=== PATIENT | male | born 1955 | race Caucasian/White ===

== ENCOUNTER 2017-08-17 20:27 | Emergency (ER) | payer MEDICAID ==
[~2017-08-17] VITALS: Ht 180.3 cm; Wt 102.0 kg
[~2017-08-17 20:27] MED LIST: LEVE500 PO; LISI-360 PO
[2017-08-17 20:31] VITALS: BP 124/58; PULSE 60; RESP 20; TEMP 97.8; O2SAT 96
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
[2017-08-17 21:00] VITALS: O2SAT 98
[2017-08-17 21:02] LABS: AUTOMATED NEUTROPHIL # 3.9 TH/MM3 (1.8-7.7); BASOPHIL # 0.1 TH/MM3 (0-0.2); EOSINOPHIL # 0.4 TH/MM3 (0-0.4); EOSINOPHIL % 5.6 % (0.0-4.0); HEMATOCRIT 43.3 % (39.0-51.0); HEMOGLOBIN 14.5 GM/DL (13.0-17.0); LYMPH % 31.2 % (9.0-44.0); LYMPHOCYTE # 2.3 TH/MM3 (1.0-4.8); MEAN CELL VOLUME 94.3 FL (80.0-100.0); MEAN CORPUSCULAR HEMOGLOBIN 31.6 PG (27.0-34.0); MEAN CORPUSCULAR HGB CONC 33.5 % (32.0-36.0); MEAN PLATELET VOLUME 8.2 FL (7.0-11.0); MONO % 10.3 % (0.0-8.0); MONOCYTE # 0.8 TH/MM3 (0-0.9); NEUT % 50.9 % (16.0-70.0); PLATELET COUNT 275 TH/MM3 (150-450); RED BLOOD COUNT 4.59 MIL/MM3 (4.50-5.90); RED CELL DISTRIBUTION WIDTH 12.7 % (11.6-17.2); WHITE BLOOD COUNT 7.5 TH/MM3 (4.0-11.0)
[2017-08-17 21:08] LABS: CHLORIDE 97 MEQ/L (98-107); SODIUM (NA) 130 MEQ/L (136-145)
[2017-08-17] MEDS ORDERED: DIAZ10 PO (21:09)
[2017-08-17] MEDS ORDERED: HYDR-3366 PO (21:09)
[2017-08-17] MEDS ORDERED: LISI10TA3 PO (21:09)
[2017-08-17] MEDS ORDERED: TRIL600T PO (21:11)
[2017-08-17] MEDS ORDERED: KEPP10002 PO (21:11)
[2017-08-17 21:12] LABS: ALBUMIN 3.6 GM/DL (3.4-5.0); BICARBONATE 27.7 MEQ/L (21.0-32.0); BLOOD UREA NITROGEN 12 MG/DL (7-18); CALCIUM 8.1 MG/DL (8.5-10.1); GLUCOSE,RANDOM 107 MG/DL (74-106); MAGNESIUM 1.9 MG/DL (1.5-2.5)
[2017-08-17 21:15] LABS: ALT (GPT) 30 U/L (12-78); AST (GOT) 16 U/L (15-37); GLOMERULAR FILTRATION RATE 68 ML/MIN (>89); PHOSPHORUS 3.2 MG/DL (2.5-4.9)
[2017-08-17 21:16] LABS: TOTAL BILIRUBIN ADULT 0.2 MG/DL (0.2-1.0); TOTAL PROTEIN 7.2 GM/DL (6.4-8.2)
[2017-08-17 21:18] LABS: ALKALINE PHOSPHATASE 99 U/L (45-117)
[2017-08-17] MEDS ORDERED: ONDANSETRON HCL 4 MG/2 ML VIAL IV PUSH ONE (21:30)
[2017-08-18] MEDS ORDERED: CARA1TAB6 PO (20:27)
[2017-08-18] MEDS ORDERED: PROT40TA PO (20:27)
== END 2017-08-17 22:13 | disposition home or self-care (01) ==
LOC: PHED 20:27
DX: G40.89 Other seizures (principal); F19.10 Other psychoactive substance abuse, uncomplicated; R10.9 Unspecified abdominal pain; M25.50 Pain in unspecified joint; I10 Essential (primary) hypertension; I25.10 Atherosclerotic heart disease of native coronary artery without angina pectoris; K21.9 Gastro-esophageal reflux disease without esophagitis; F17.200 Nicotine dependence, unspecified, uncomplicated; Z87.39 Personal history of other diseases of the musculoskeletal system and connective tissue; Z86.79 Personal history of other diseases of the circulatory system; Z87.09 Personal history of other diseases of the respiratory system
CPT/HCPCS: 80053; 80307; 83690; 83735; 84100; 85025; 96374; 99284; J2405

== ENCOUNTER 2017-08-18 17:49 | Emergency (ER) | payer MEDICAID ==
[~2017-08-18] VITALS: Ht 180.3 cm; Wt 101.1 kg
[~2017-08-18 17:49] MED LIST changes: +DIAZ10 PO; +HYDR-3366 PO; +KEPP10002 PO; -LEVE500 PO; -LISI-360 PO; +LISI10TA3 PO; +TRIL600T PO
[2017-08-18 17:55] VITALS: BP 148/79; PULSE 96; RESP 16; TEMP 98.3; O2SAT 96
[2017-08-18 18:15] VITALS: RESP 16; O2SAT 95
[2017-08-18] MEDS ORDERED: ATROPINE/SCOPOLAM/HYOSCYAM/PB ELIXIR 10 ML CUP PO ONE (18:15)
[2017-08-18] MEDS ORDERED: PANTOPRAZOLE SOD 40 MG DELAYED RELEASE TAB PO ONE (18:15)
[2017-08-18] MEDS ORDERED: ALUMINUM/MAGNESIUM/SIMETH 30 ML CUP PO ONE (18:15)
[2017-08-18 18:16] VITALS: BP 144/81; PULSE 58; RESP 16; O2SAT 95
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
[2017-08-18 18:35] LABS: AUTOMATED NEUTROPHIL # 3.2 TH/MM3 (1.8-7.7); BASOPHIL # 0.1 TH/MM3 (0-0.2); BASOPHIL % 2.3 % (0.0-2.0); EOSINOPHIL # 0.3 TH/MM3 (0-0.4); EOSINOPHIL % 3.9 % (0.0-4.0); HEMATOCRIT 43.2 % (39.0-51.0); HEMOGLOBIN 14.7 GM/DL (13.0-17.0); LYMPH % 32.2 % (9.0-44.0); LYMPHOCYTE # 2.1 TH/MM3 (1.0-4.8); MEAN CELL VOLUME 94.4 FL (80.0-100.0); MEAN CORPUSCULAR HEMOGLOBIN 32.2 PG (27.0-34.0); MEAN PLATELET VOLUME 8.3 FL (7.0-11.0); MONO % 10.9 % (0.0-8.0); MONOCYTE # 0.7 TH/MM3 (0-0.9); NEUT % 50.7 % (16.0-70.0); PLATELET COUNT 259 TH/MM3 (150-450); RED BLOOD COUNT 4.57 MIL/MM3 (4.50-5.90); RED CELL DISTRIBUTION WIDTH 12.8 % (11.6-17.2); WHITE BLOOD COUNT 6.4 TH/MM3 (4.0-11.0)
[2017-08-18 18:45] LABS: CHLORIDE 99 MEQ/L (98-107); SODIUM (NA) 130 MEQ/L (136-145)
[2017-08-18 18:48] LABS: ALBUMIN 3.7 GM/DL (3.4-5.0); BICARBONATE 24.8 MEQ/L (21.0-32.0)
[2017-08-18 18:49] LABS: BLOOD UREA NITROGEN 13 MG/DL (7-18); GLUCOSE,RANDOM 90 MG/DL (74-106)
--- NOTE | 2017-08-18 18:49 | RADRPT ---
EXAM DATE/TIME: 08/18/2017 18:28 [facility] COMPARISON: No previous studies available for comparison. INDICATIONS : Abdomen pain MEDICAL HISTORY : Chronic obstructive pulmonary disease. SURGICAL HISTORY : Cholecystectomy. biliary duct stent ENCOUNTER: Initial ACUITY: 1 day PAIN SCORE: 10/10 LOCATION: Bilateral abdomen FINDINGS: The exam demonstrates a moderate amount of stool diffusely throughout the colon suggesting constipati on. There are surgical clips in the right upper quadrant. There is an internal biliary stent in place. No findings to indicate bowel obstruction are seen. No free air is identified. The visualized bony structures demonstrate degenerative changes but are otherwise intact. CONCLUSION: 1. Biliary stent in good position. 2. Stool diffusely throughout the colon suggesting constipation. Sukhjinder Calvillo MD on August 18, 2017 at 18:46 Board Certified Radiologist. This report was verified electronically.
[2017-08-18 18:51] LABS: ALT (GPT) 29 U/L (12-78); AST (GOT) 25 U/L (15-37); GLOMERULAR FILTRATION RATE 52 ML/MIN (>89)
[2017-08-18 18:53] LABS: PROTHROMBIN TIME - PATIENT 10.6 SEC (9.8-11.6); TOTAL BILIRUBIN ADULT 0.2 MG/DL (0.2-1.0); TOTAL PROTEIN 7.5 GM/DL (6.4-8.2)
[2017-08-18 18:54] LABS: ALKALINE PHOSPHATASE 89 U/L (45-117)
[2017-08-18 18:56] LABS: TROPONIN I LESS THAN 0.02 NG/ML (0.02-0.05)
[2017-08-18 19:30] VITALS: BP 142/80; PULSE 56; RESP 18; O2SAT 97
[2017-08-18 19:30] LABS: BILIRUBIN, URINE NEG (NEG); BLOOD, URINE NEG (NEG); GLUCOSE,URINE NEG (NEG); KETONE, URINE NEG (NEG); NITRITE,URINE NEG (NEG); URINE COLOR YELLOW (YELLW/STRAW); URINE LEUKOCYTE ESTERASE TRACE (NEG)
[2017-08-18 19:47] LABS: SQUAMOUS EPITHELIAL CELL URINE 0-5 /hpf (0-5); WBC, URINE 0-2 /hpf (0-5)
[2017-08-18 19:48] LABS: MUCUS URINE OCC /lpf (OCC)
[2017-08-18] MEDS ORDERED: PROT40TA PO (20:27)
[2017-08-18] MEDS ORDERED: CARA1TAB6 PO (20:27)
[2017-08-18 20:54] VITALS: BP 146/86; PULSE 61; RESP 18; O2SAT 96
--- NOTE | 2017-08-19 10:32 | EKG ---
Date Performed: 08/18/2017 Time Performed: 18:10:11 PTAGE: 62 years EKG: SINUS BRADYCARDIA BORDERLINE ECG Compared to PREVIOUS TRACING the patient is now bradycardic PREVIOUS TRACIN01/21/2014 21.33 DOCTOR: Marta Nguyen Interpretating Date/Time 08/19/2017 10:32:21
== END 2017-08-18 20:56 | disposition home or self-care (01) ==
LOC: PHED 17:49
DX: R10.13 Epigastric pain (principal); K29.50 Unspecified chronic gastritis without bleeding; B18.2 Chronic viral hepatitis C; I10 Essential (primary) hypertension; J44.9 Chronic obstructive pulmonary disease, unspecified; R56.9 Unspecified convulsions; Z88.0 Allergy status to penicillin; M54.9 Dorsalgia, unspecified; M25.511 Pain in right shoulder; G89.29 Other chronic pain; I25.10 Atherosclerotic heart disease of native coronary artery without angina pectoris; R94.31 Abnormal electrocardiogram [ECG] [EKG]; F14.10 Cocaine abuse, uncomplicated; Z72.0 Tobacco use
CPT/HCPCS: 74019; 80053; 81001; 82550; 83690; 84484; 85025; 85610; 85730; 93005; 99285